=== PATIENT | female | born 1975 | race Two or more races ===

== ENCOUNTER 2020-01-29 07:50 | Emergency (ER) | payer OTHER ==
[~2020-01-29] VITALS: Ht 154.9 cm; Wt 63.5 kg
--- NOTE | 2020-01-29 08:19 | NUR ---
@bedside, MSE in progress
[2020-01-29] MEDS ORDERED: KETOROLAC TROMETHAMINE 30 MG INJ ONE (08:37)
[2020-01-29] MEDS ORDERED: IV NORMAL SALINE 1000 ML BAG IV ONE (08:45)
[2020-01-29] MEDS ORDERED: KETOROLAC TROMETHAMINE 30 MG INJ IVP ONE (08:45)
[2020-01-29 08:52] LABS: BASOPHILS % (AUTO) 0.2 % (0.0-2.0); EOSINOPHILS % (AUTO) 0.1 % (0.0-7.0); HEMATOCRIT 38.7 % (31.2-41.9); HEMOGLOBIN 12.4 g/dL (10.9-14.3); LYMPHOCYTES # (AUTO) 1.5 K/uL (20.0-40.0); LYMPHOCYTES % (AUTO) 11.2 % (20.5-51.5); MEAN CORPUSCULAR HEMOGLOBIN 20.6 uug (24.7-32.8); MEAN CORPUSCULAR HGB CONC 32 g/dL (32.3-35.6); MEAN CORPUSCULAR VOLUME 64.3 fL (75.5-95.3); MONOCYTES # (AUTO) 0.6 K/uL (2.0-10.0); MONOCYTES % (AUTO) 4.3 % (0.0-11.0); NEUTROPHILS # (AUTO) 11.5 K/uL (1.8-8.9); NEUTROPHILS % (AUTO) 84.2 % (38.5-71.5); PLATELET COUNT (AUTO) 354 K/uL (179-408); RED BLOOD CELL COUNT(AUTO) 6.02 MIL/uL (3.63-4.92); WHITE BLOOD COUNT (AUTO) 13.6 K/uL (3.8-11.8)
[2020-01-29 08:58] LABS: CREATININE 0.8 mg/dL (0.6-1.3); POTASSIUM 3.8 mmol/L (3.5-5.1)
[2020-01-29 08:58] LABS: *BILIRUBIN,URIN NEGATIVE (NEGATIVE); *BLOOD, URINE 2+ (NEGATIVE); *CLARITY,URINE CLEAR (CLEAR); *COLOR,URINE YELLOW (YELLOW); *KETONES,URINE NEGATIVE (NEGATIVE); *UROBILINOGEN,URINE 0.2 E.U./dl (NORMAL); LEUKOCYTE ESTERASE ,URINE NEGATIVE (NEGATIVE); NITRITE, URINE NEGATIVE (NEGATIVE); UGLUCOSE NEGATIVE (NEGATIVE)
[2020-01-29 08:59] LABS: BACTERIA,URINE NONE SEEN /HPF (NONE SEEN); SQUAMOUS EPITHELIAL CELL,UR FEW /HPF (NONE SEEN); WBC,URINE 0-3 /HPF (0-3)
[2020-01-29 09:07] LABS: BILIRUBIN,DIRECT 0.2 mg/dL (0.0-0.2); BILIRUBIN,TOTAL 0.6 mg/dL (0.2-1.0); TOTAL PROTEIN, SERUM 7.5 g/dL (6.4-8.2)
--- NOTE | 2020-01-29 11:06 | NUR ---
Patient is resting comfortably on gurney while watching bedside TV. Extra warm blankets on. Updates done. No concerns or questions expressed@this time.
--- NOTE | 2020-01-29 11:33 | NUR ---
Patient is for discharged to home. Written and verbal after care instructions given to patient. Patient verbalized understanding & compliance of instructions. Patient's ride [id number].
--- NOTE | 2020-01-29 11:36 | NUR ---
IV removed. Catheter intact and site benign. Pressure and 4x4 gauze applied to site. No bleeding noted. Patient will wait in the ER waiting room for her ride. Patient ambulated with brisk steady gait.
== END 2020-01-29 11:37 | disposition home or self-care (01) ==
LOC: ER 07:50
DX: R19.7 Diarrhea, unspecified (principal); R55 Syncope and collapse; M94.0 Chondrocostal junction syndrome [Tietze]; R10.11 Right upper quadrant pain; J45.909 Unspecified asthma, uncomplicated
CPT/HCPCS: 99285; 36415; 71045; 76705; 80048; 80076; 81000; 81001; 83690; 84484; 84702; 85025; 93005; 96374; J1885; 70030-TC; A4663; J7030